=== PATIENT | male | born 1975 | race Caucasian/White ===

== ENCOUNTER 2017-07-22 21:38 | Emergency (ER) | payer SELFPAY ==
[2017-07-22 23:43] LABS: Hematocrit 42 % (42-52); Mean Corpuscular HGB Conc 33 g/dl (31-36); Mean Corpuscular Hemoglobin 29 pg (27-31); Mean Corpuscular Volume 86 fL (80-94); Mean Platelet Volume 10 um3 (7.4-10.4); Red Blood Count 4.93 10^6/ul (4.0-5.4); Red Cell Distribution Width 14 % (10.5-15); White Blood Count 11.2 10^3/ul (3.5-10.8)
[2017-07-22 23:57] LABS: Albumin 4.3 g/dL (3.2-5.2); BUN/Creatinine Ratio 14.9 (8-20); Calcium 9.4 mg/dL (8.6-10.3); EGFR African American 112.1 (>60); EGFR Non-African American 87.2 (>60); Globulin 2.8 g/dL (2-4); Total Bilirubin 0.4 mg/dL (0.2-1.0); Total Protein 7.1 g/dL (6.4-8.9)
[2017-07-23] MEDS ORDERED: Albuterol HFA INHALER* 8 gm MDI INH ONE (01:54)
[2017-07-23 02:03] VITALS: BP 121/86
--- NOTE | 2017-07-23 07:41 | RAD ---
HISTORY: Cough COMPARISONS: September 09, 2011 VIEWS: 4: Frontal dual-energy and lateral views of the chest. FINDINGS: CARDIOMEDIASTINAL SILHOUETTE: The cardiomediastinal silhouette is normal. JESSI: The jessi are normal. PLEURA: The costophrenic angles are sharp. No pleural abnormalities are noted. LUNG PARENCHYMA: The lungs are clear. ABDOMEN: The upper abdomen is clear. There is no subphrenic gas. BONES AND SOFT TISSUES: No bone or soft tissue abnormalities are noted. OTHER: None. IMPRESSION: NO ACTIVE CARDIOPULMONARY DISEASE.
--- NOTE | 2017-08-04 01:37 | ED ---
Jose Narayanan Angela, scribed for Parish Valencia MD on 07/22/17 at 2323 . Respiratory - HPI Summary HPI Summary: This pt is a 42 y/o male [facility] [place] non-productive [place] for the last couple of weeks. Pt additionally c/o nasal congestions, chest congestion. He states he has chest pain and headache only when he coughs. Pt notes he is warmer than usual. Pt denies fever, sore throat, rhinorrhea, SOB. He reports normal sense of taste and smell. No recent LOC. Pt has taken Delsym cough syrup with no relief. Pt denies any past surgeries. He is a former smoker, quit 4 months ago. Pt was admitted to the hospital for syncope in 2008. - History of Current Complaint Chief Complaint: EDUpperRespComplaint Stated Complaint: COUGH,CONGESTION Time Seen by Provider: 07/22/17 23:17 Hx Obtained From: Patient Onset/Duration: Lasting Days, Still Present Timing: Constant Pain Intensity: 1 Character: Cough (Nonproductive) Sputum Amount: None Associated Signs and Symptoms: Chest Pain - secondary to cough, Chest Pain with Cough - Allergy/Home Medications Allergies/Adverse Reactions: Allergies Allergy/AdvReac Type Severity Reaction Status Date / Time Penicillins Allergy Swelling Verified 07/22/17 21:45 PMH/Surg Hx/FS Hx/Imm Hx Endocrine/Hematology History: Denies: Hx Diabetes Cardiovascular History: Reports: Hx Hypertension - Immunization History Date of Tetanus Vaccine: unk Date of Influenza Vaccine: none Infectious Disease History: No Infectious Disease History: Denies: Traveled Outside the [place] in Last 30 Days - Family History Known Family History: Positive: Other - father: depression and suicide - Social History Alcohol Use: None Substance Use Type: Reports: None Smoking Status (MU): Former Smoker Review of Systems Positive: Other - warmer. Negative: Fever, Chills ENT: Other - nasal congestion, normal sense of taste and smell Negative: Sore Throat, Other - rhinorrhea Positive: Chest Pain - secondary to cough Positive: Cough. Negative: Shortness Of Breath Positive: Headache - secondary to cough. Negative: Syncope - or LOC All Other Systems Reviewed And Are Negative: Yes Physical Exam - Summary Physical Exam Summary: Appearance: Well-appearing, Well-nourished Skin: Warm, Dry, No rash Eyes: Normal, PERRL, EOMI, sclera anicteric ENT: Normal Neck: Supple, nontender Respiratory: Clear to auscultation Cardiovascular: S1, S2, no murmur, no rub, no gallop Abdomen: Soft, nontender, no organomegaly Bowel sounds: Present Musculoskeletal: Normal, Strength/ROM Intact, no edema, pulses symmetrical Neurological: Normal, A&Ox3, cranial nerves II-XII wnl, follows commands, gait not tested, sensation intact to pin and light touch Psychiatric: affect normal, behavior appropriate, dressed appropriately, judgment intact Triage Information Reviewed: Yes Vital Signs On Initial Exam: Initial Vitals Temp Pulse Resp BP Pulse Ox 97.8 F 78 17 130/75 99 07/22/17 21:40 07/22/17 21:40 07/22/17 21:40 07/22/17 21:40 07/22/17 21:40 Vital Signs Reviewed: Yes - Mills Coma Scale Coma Scale Total: 15 Diagnostics - Vital Signs Vital Signs Temp Pulse Resp BP Pulse Ox 07/22/17 21:40 97.8 F 78 17 130/75 99 - Laboratory Result Diagrams: 07/22/17 23:30 07/22/17 23:30 Lab Statement: Any lab studies that have been ordered have been reviewed, and results considered in the medical decision making process. - Radiology Chest XR Xray Interpretation: No Acute Changes - Chest XR is clear. Radiology Interpretation Completed By: Radiologist Disposition - Course Assessment/Plan: Pt is a 42 y/o male who presents with a non-productive cough for the last couple of weeks. Chest XR is clear. Pt will be discharged home with diagnosis of bronchitis. Pt will be give a prescription for levaquin. - Diagnoses Provider Diagnoses: Bronchitis Discharge - Discharge Plan Condition: Good Disposition: HOME Prescriptions: Levofloxacin TAB* [Levaquin TAB*] 500 mg PO DAILY 6 Days #6 tab Patient Education Materials: Acute Bronchitis (ED) Referrals: Cristino Collado MD [Primary Care Provider] - The documentation as recorded by the Jose cyr Angela accurately reflects the service I personally performed and the decisions made by me, Parish Valencia MD.
== END 2017-07-23 02:02 | disposition home or self-care (01) ==
LOC: ED 21:38
DX: J40 Bronchitis, not specified as acute or chronic (principal); R07.9 Chest pain, unspecified; R05 Cough; R51 Headache
CPT/HCPCS: 36415; 71020; 80053; 85025; 99282; A9270-GY